=== PATIENT | female | born 1995 | race Caucasian/White ===

== ENCOUNTER 2021-08-01 11:33 | Inpatient (IN) | payer OTHER, SELFPAY ==
[2021-08-01 11:34] VITALS: BP 146/96; PULSE 82; RESP 16; TEMP 35.9; O2SAT 97; BMI 62.6
--- NOTE | 2021-08-01 11:59 | EDS_ITS ---
HPI History of Present Illness Chief Complaint: Abd Pain Informant: patient Onset/Context/Timing Onset: Days (3 days) Context: Gradual Onset Current Severity: Moderate Maximum Severity: Moderate Narrative Narrative: Patient presents secondary to epigastric abdominal pain. She reports constant pain. When she eats she states the pain will get worse and she will vomit. No diarrhea. She is had no fever but has had mild chills. She does report cough but no shortness of breath. She has been tested 3 times this week for Covid and negative. She was also vaccinated. She denies any prior abdominal surgeries. [facility] Medical History Depression H. pylori infection Seasonal allergies Home Medications albuterol sulfate [Proventil Hfa] 1 - 2 g IH PRN PRN 01/01/16 [History Last Taken Unknown] escitalopram oxalate 20 mg PO DAILY 08/01/21 [History Last Taken Unknown] omeprazole 40 mg PO DAILY 08/01/21 [History Last Taken Unknown] Allergy/AdvReac Type Severity Reaction Status Date / Time No Known Allergies Allergy Verified 08/01/21 11:34 Social History Smoking Status: Never smoker ROS ROS ED Constitutional Constitutional ED: Reports chills; Denies fever(s) Eyes Eyes: Denies change in vision ENT ENT ED: Denies sore throat Cardiovascular Cardiovascular: Denies chest pain Respiratory/Chest Respiratory/Chest: Reports cough and sputum; Denies dyspnea Gastrointestinal Gastrointestinal: Reports abdominal pain, nausea and vomiting; Denies diarrhea Genitourinary Genitourinary ED: Denies dysuria Musculoskeletal Musculoskeletal: Denies back pain Integumentary Denies rash Neurologic Neurologic: Denies headache(s) or weakness Allergic/Immunologic Allergic/Immunologic ED: Denies urticaria EXAM Physical Exam Const Vital Signs: 08/01/21 11:34 08/01/21 14:56 Temperature 96.7 F L Temperature Source Temporal Pulse Rate 82 71 Respiratory Rate 16 16 Blood Pressure 146/96 H 134/79 H Blood Pressure Mean 112 8 Pulse Ox 97 100 Oxygen Delivery Method Room Air Room Air Positive well nourished and well developed General Appearance ED: well developed HEENT Reports normocephalic and head/scalp atraumatic Eyes PERRL and EOMs intact bilaterally Neck supple Chest Wall inspection of chest normal and palpation of chest normal Resp normal respiratory effort and clear to auscultation bilaterally Cardio regular rate and regular rhythm GI Auscultation: hypoactive bowel sounds Palpation: soft and tender epigastric Extremity normal to inspection Neuro oriented x3 and no sensory deficits noted Sensorium / Orientation: alert Motor Exam: strength 5/5 throughout Psych mental status grossly normal Skin no rashes or lesions noted MDM MDM MDM Narrative Medical decision making narrative: Patient is given Zofran and Protonix along with IV fluids. Lab work obtained. Lab Data Attestation: I reviewed the patient's lab results. Labs: Laboratory Results - last 24 hr 08/01/21 08/01/21 12:25 12:25 WBC 6.3 RBC 4.72 Hgb 13.2 Hct 40.4 MCV 85.6 MCH 28.0 MCHC 32.7 RDW Std Deviation 38.1 RDW Coeff of Arvin 12.3 Plt Count 199 MPV 10.9 Immature Gran % (Auto) 0.300 Neut % (Auto) 70.9 H Lymph % (Auto) 18.9 L [place] % (Auto) 7.6 Eos % (Auto) 1.7 Baso % (Auto) 0.6 Absolute Neuts (auto) 4.5 Absolute Lymphs (auto) 1.19 Nucleated RBC % 0 Sodium 140 Potassium 3.7 Chloride 107 Carbon Dioxide 26.0 Anion Gap 7 BUN 9 Creatinine 0.77 Estim Creat Clear Calc 108.61 Est GFR (MDRD) Af Amer 118 Est GFR (MDRD) Non-Af 97 BUN/Creatinine Ratio 11.7 Glucose 95 Calcium 8.2 L Total Bilirubin 4.80 H Direct Bilirubin 3.19 H AST 156 H ALT 486 H Alkaline Phosphatase 206 H Total Protein 7.2 Albumin 3.1 L Globulin 4.1 Lipase 4070 H Radiography Chest X-Ray - ED: 1 View, Read by ED Physician, Normal, Heart, Lungs and Mediastinum Diagnostic Testing: Radiology Impression Chest X-Ray 08/01/21 12:22 IMPRESSION: Normal x-ray examination of the chest. Electronically Signed: Juan Ellington MD at 12:46 EDT , Service support , Abdomen Ultrasound 08/01/21 13:23 IMPRESSION: Fatty infiltration of the liver. Multiple gallstones. Mild degree of bright hydronephrosis. Electronically Signed: Juan Ellington MD at 15:09 EDT , Service support , Treatment and Re-Evaluation Comments:: Patient's LFTs and lipase are elevated. Right upper quadrant ultrasound obtained that reveals multiple gallstones. No significant gallbladder wall thickness or stone noted in the duct. Patient be admitted to medicine with consult to GI. Test results discussed with patient and family at bedside. Discharge Plan Triage Chief Complaint: Abd Pain ED Provider: Beth Seo Dx/Rx/DC Orders Clinical Impression: Acute pancreatitis Prescriptions: No Action albuterol sulfate [Proventil HFA] 6.7 GM HFA aerosol inhaler 1 - 2 g IH PRN PRN (Reason: Sob &/Or Wheezing) RF: 0 omeprazole 40 mg capsule,delayed release(DR/EC) 40 mg PO DAILY RF: 0 escitalopram oxalate 20 mg tablet 20 mg PO DAILY RF: 0 Primary Care Provider: Carrington Bravo Referrals: Carrington Bravo MD [Primary Care Provider] - Disposition Disposition: Acute Care [facility]
--- NOTE | 2021-08-01 12:22 | RAD_ITS ---
STUDY: X-RAY CHEST REASON FOR EXAM: Female, 26 years old. Cough TECHNIQUE: Single AP portable view of the chest. COMPARISON: Comparison is made with prior study dated 01/01/2016. FINDINGS: The lungs are clear and expanded. There is no demonstrated pleural abnormality. Normal size heart. Normal mediastinum and yogesh. Normal visualized pulmonary arteries. Normal visualized aortic arch and descending thoracic aorta. Normal visualized thoracic spine. Normal visualized ribs, clavicles, and shoulders. There is no demonstrated abnormality of the visualized soft tissue structures of the upper abdomen. RAD/Chest 1 View (Portable) IMPRESSION: Normal x-ray examination of the chest. Electronically Signed: Juan Ellington MD at 12:46 EDT , Service support ,
[2021-08-01] MEDS: 0.9% Normal Saline 1,000 ML 150 ML IV ×2 (12:30→19:17)
[2021-08-01] MEDS: Ondansetron 4 MG/2 ML Vial IV (12:34)
[2021-08-01 12:37] LABS: Absolute Lymphocyte Count 1.19 X10^3/uL (0.83-4.51); Absolute Neutrophil Count 4.5 X10^3/uL (2.0-7.7); Basophil# 0.04 X10^3/uL; Basophil% 0.6 % (0-1); Eosinophil# 0.11 X10^3/uL; Eosinophils% 1.7 % (0-5); Hematocrit 40.4 % (37-47); Hemoglobin 13.2 g/dL (12.0-15.0); Lymphocyte # 1.19 X10^3/ul (0.83-4.51); Lymphocyte % 18.9 % (19-41); Mean Corp Hgb Conc 32.7 g/dL (32-36); Mean Corpuscular Volume 85.6 fL (81-99); Mean Platelet Vol. 10.9 fl (6.2-12.0); Monocyte# 0.48 X10^3/uL; Monocyte% 7.6 % (0-10); NRBC Flagged by Analyzer 0 % (0-5); Neutrophil # 4.45 X10^3/uL (2.7-7.7); Neutrophil % 70.9 % (47-70); Platelet Count 199 K/mm3 (150-450); RBC Distribution Width CV 12.3 % (11.6-14.6); RBC Distribution Width SD 38.1 fl (35.1-43.9); Red Blood Count 4.72 M/mm3 (4.2-5.4); White Blood Count 6.3 K/mm3 (4.4-11.0)
[2021-08-01 13:07] LABS: AST(SGOT) 156 U/L (15-37); Alanine Aminotransfer ALT/SGPT 486 U/L (13-56); Albumin, Serum 3.1 g/dL (3.2-5.0); Alkaline Phosphatase 206 U/L (45-117); Anion Gap 7 (5-15); BUN 9 mg/dL (7-18); BUN/Creat Ratio 11.7 RATIO (10-20); Bilirubin, Direct 3.19 mg/dL (0.00-0.30); Calcium,Total 8.2 mg/dL (8.5-10.1); Chloride 107 mmol/L (98-107); Creatinine, Serum 0.77 mg/dL (0.55-1.02); EST Glomerular Filtration Rate 97 mL/min (>60); Est Glom Filt Rate - Afr Amer 118 mL/min (>60); Estimated Creatinine Clearance 108.61 ml/min; Globulin 4.1 g/dL (2.2-4.2); Glucose 95 mg/dL (74-106); Lipase 4070 U/L (73-393); Potassium 3.7 mmol/L (3.5-5.1); Protein, Total 7.2 g/dL (6.4-8.2); Sodium Level 140 mmol/L (136-145)
--- NOTE | 2021-08-01 13:23 | US_ITS ---
STUDY: ABDOMINAL ULTRASOUND - RIGHT UPPER QUADRANT REASON FOR VISIT: Female, 26 years old epigastric pain. TECHNIQUE: Ultrasound evaluation of the right upper quadrant was performed with real-time and static scott-scale imaging. TECHNICAL QUALITY: Limited. Examination limited due to obesity. COMPARISON: None. FINDINGS: Liver: The liver measures 17 cm. There is increased echogenicity consistent with fatty infiltration. The bile ducts are within normal limits. There is hepatic color flow. The direction of portal flow is hepatopetal. There is no demonstrated mass lesion. Gallbladder: Normal distended gallbladder. The gallbladder wall measures 2.4 mm. There is a negative sonographic Rush''s sign. There is no pericholecystic fluid. There are multiple echogenic structures within the gallbladder, consistent with multiple gallstones. Common Bile Duct (C.B.D.): The common bile duct measures 4.5 mm. Pancreas: Normal size of the head, body and tail of the pancreas. There is normal echogenicity of the pancreas. There is no demonstrated pancreatic mass or cyst. Right Kidney: Normal size of the right kidney. The right kidney measures 12.4 cm x 6.2 cm x 4.3 cm. Normal renal cortex. The right cortex measures 1.5 cm. There is no demonstrated renal mass or cyst. Mild degree of right hydronephrosis. US/Abdomen Limited IMPRESSION: Fatty infiltration of the liver. Multiple gallstones. Mild degree of bright hydronephrosis. Electronically Signed: Juan Ellington MD at 15:09 EDT , Service support ,
[2021-08-01 14:56] VITALS: BP 134/79; PULSE 71; RESP 16; O2SAT 100
[2021-08-01 16:30] VITALS: BP 135/74; PULSE 82; RESP 16; TEMP 37.2; O2SAT 97
--- NOTE | 2021-08-01 17:45 | PCM.HP.STD ---
HPI - General General Date of Admission: 08/01/21 HPI Narrative AINSLEY MORRIS, is a 26 F who presented to the emergency department [facility] on 08/01/2021 complaining abdominal pain. She reports that she has had epigastric abdominal pain that has been constant but worsening over the last 3 days. She states it started on Wednesday night was fairly constant yesterday but got more severe this morning and that is why she decided to present to the emergency department. She reported that when she eats she states the pain gets worse and she will have an emesis. She has had intermittent nausea but no diarrhea or constipation. She said no fever but had intermittent mild chills. She indicates she is been tested 3 times for Covid this week and has been negative each time. She has no other symptoms other than her abdominal symptoms. She denies any previous abdominal surgeries and has had to her Covid vaccine. Her vital signs the emergency department were unremarkable. Her CBC was unremarkable. Her CMP was unremarkable other than an elevated total bilirubin at 4.8 with a direct bilirubin of 3.19, and AST of 156, and ALT of 486, and an alkaline phosphatase of 206. A lipase was obtained and was elevated at 4070. Given the concern for gallstone pancreatitis and ultrasound of her abdomen was performed and showed fatty infiltration of the liver, multiple gallstones and a mild degree of right hydronephrosis but no ductal dilation within the biliary system. Upon my exam she was having improved pain since this morning and I suspect she had a stone that passed acutely this morning. She will be admitted to medical surgical floor for continued treatment for mild pancreatitis and follow-up on her liver enzymes. [facility] Medical History Depression H. pylori infection Seasonal allergies Home Medications albuterol sulfate [Proventil Hfa] 1 - 2 g IH PRN PRN 01/01/16 [History Last Taken Unknown] escitalopram oxalate 20 mg PO DAILY 08/01/21 [History Last Taken Unknown] omeprazole 40 mg PO DAILY 08/01/21 [History Last Taken Unknown] Allergy/AdvReac Type Severity Reaction Status Date / Time No Known Allergies Allergy Verified 08/01/21 11:34 Family History (Updated 08/01/21 @ 17:[address] Mary Cesar DO) Other Hypertension Social History (Updated 08/01/21 @ 17:[address] Mary Cesar, DO) Smoking Status: Never smoker alcohol intake: current alcohol intake frequency: holidays/special occasions only substance use type: does not use ROS Review of Systems ROS Unobtainable: Denies due to encephalopathy, due to endotracheal tube, due to mental condition, due to mental status or other Constitutional Constitutional: Reports anorexia and chills; Denies change in weight, fatigue, fever(s), malaise, night sweats, weakness or other Eyes Eyes: Denies blurry vision, change in eye color, change in vision, discharge from eye(s), double vision, erythema, eye pain, loss of vision or other ENT HEENT: Denies abnormal hearing, dysphagia, ear pain, epistaxis, headache(s), hearing loss, nasal congestion, nasal discharge, post nasal drip, sinus pressure, sore throat or other Cardiovascular Cardiovascular: Denies chest pain, claudication, dyspnea on exertion, edema, lightheadedness, orthopnea, palpitations, paroxysmal nocturnal dyspnea, rapid heart rate, syncope or other Respiratory/Chest Respiratory/Chest: Denies cough, dyspnea, excessive phlegm production, hemoptysis, productive cough, shortness of breath at rest, shortness of breath with exertion, wheezing or other Gastrointestinal Gastrointestinal: Reports abdominal pain, nausea and vomiting; Denies coffee ground emesis, constipation, diarrhea, dyspepsia, hematemesis, hematochezia, loose stools, melena or other Genitourinary Genitourinary: Denies burning urination, difficulty urinating, dysuria, hematuria, nocturia, urinary frequency, urinary hesitancy, urinary incontinence, urinary urgency or other Musculoskeletal Musculoskeletal: Denies arthralgias, back pain, joint pain, joint stiffness, joint swelling, myalgias, neck pain or other Neurologic Neurologic: Denies abnormal gait, abnormal speech, confusion, disequilibrium, dizziness, focal weakness, headache(s), numbness, paresthesias, seizure-like activity, seizures, syncope, tingling, tremor(s) or other Psychiatric Psychiatric: Denies anxiety, depression, homicidal ideation, suicidal ideation or other Endocrine Endocrinology: Denies change in body appearance, cold intolerance, excessive sweating, heat intolerance, polydipsia, polyuria or other Hematologic/Lymphatic Hematologic/Lymphatic: Denies anemia, easy bleeding, easy bruising, lymphadenopathy or other Allergic/Immunologic Allergic/Immunologic: Denies rhinitis, hives, eczemia, asthma or other Vital Signs Vital Signs Vital Signs: 08/01/21 11:34 08/01/21 14:56 08/01/21 16:30 Temperature 96.7 F L 98.9 F Temperature Source Temporal Oral Pulse Rate 82 71 82 Respiratory Rate 16 16 16 Blood Pressure 146/96 H 134/79 H 135/74 H Blood Pressure Mean 112 8 94 Pulse Ox 97 100 97 Oxygen Delivery Method Room Air Room Air Room Air Weight Weight: 181.437 kg Body Mass Index (BMI) 62.6 Physical Exam Const alert, oriented x3 and no apparent distress Constitutional Narrative: Morbidly obese white female sitting up in bed, appears comfortable, mother at bedside, nontoxic General Appearance: cooperative HEENT normocephalic, head/scalp atraumatic, hearing grossly normal bilaterally, moist oral mucous membranes, oropharynx normal and dentition normal Mouth: oral and palatal mucosa normal Eyes PERRL, EOMs intact bilaterally and conjunctivae normal Neck no lymphadenopathy, supple, no JVD and no carotid bruits Resp normal respiratory effort, no retractions, no use of accessory muscles and clear to auscultation bilaterally Auscultation: Negative for crackles, rales, rhonchi or wheezes Cardio regular rate, regular rhythm, S1 normal heart sound, S2 normal heart sound, no murmurs, no rub, no gallops, no clicks and no JVD GI normal to inspection, nondistended, normoactive bowel sounds and soft to palpation Palpation: tender epigastric and LUQ Extremity normal to inspection and no clubbing, cyanosis or edema Peripheral Pulses: Yes pulses 2+ throughout Skin no rashes or lesions noted, no wounds, skin turgor normal, no jaundice, no petechiae and no mottling Neuro oriented x3, CN's II-XII intact bilaterally, moves all extremities and no focal motor deficits Sensorium / Orientation: awake, alert, oriented to person, oriented to place and oriented to time Speech: speech normal Motor Exam: strength 5/5 throughout Psych affect normal Results Lab / Micro Data Attestation: I reviewed the patient's lab results. Result Diagrams: 08/01/21 12:25 08/01/21 12:25 Labs: Laboratory Results - last 24 hr 08/01/21 12:25: WBC 6.3, RBC 4.72, Hgb 13.2, Hct 40.4, MCV 85.6, MCH 28.0, MCHC 32.7, RDW Std Deviation 38.1, RDW Coeff of Arvin 12.3, Plt Count 199, MPV 10.9, Immature Gran % (Auto) 0.300, Neut % (Auto) 70.9 H, Lymph % (Auto) 18.9 L, [place] % (Auto) 7.6, Eos % (Auto) 1.7, Baso % (Auto) 0.6, Absolute Neuts (auto) 4.5, Absolute Lymphs (auto) 1.19, Nucleated RBC % 0 08/01/21 12:25: Sodium 140, Potassium 3.7, Chloride 107, Carbon Dioxide 26.0, Anion Gap 7, BUN 9, Creatinine 0.77, Estim Creat Clear Calc 108.61, Est GFR (MDRD) Af Amer 118, Est GFR (MDRD) Non-Af 97, BUN/Creatinine Ratio 11.7, Glucose 95, Calcium 8.2 L, Total Bilirubin 4.80 H, Direct Bilirubin 3.19 H, AST 156 H, ALT 486 H, Alkaline Phosphatase 206 H, Total Protein 7.2, Albumin 3.1 L, Globulin 4.1, Lipase 4070 H Radiology Impression Chest X-Ray 08/01/21 12:22 IMPRESSION: Normal x-ray examination of the chest. Electronically Signed: Juan Ellington MD at 12:46 EDT , Service support , Abdomen Ultrasound 08/01/21 13:23 IMPRESSION: Fatty infiltration of the liver. Multiple gallstones. Mild degree of bright hydronephrosis. Electronically Signed: Juan Ellington MD at 15:09 EDT , Service support , Assessment & Plan Assessment/Plan (1) Acute pancreatitis: (2) Cholelithiasis: (3) Hepatic steatosis: (4) Hydronephrosis, right: PLAN: Acute gallstone pancreatitis -Continue IV fluids at 150 cc/h -Continue IV morphine for pain management -Trend enzymes -I do anticipate a decline in her LFTs tomorrow given her improved pain -Patient is a nondrinker -Check lipids -GI consultation -will need outpatient surgical follow-up for cholecystectomy after discharge Cholelithiasis -See above Mild right hydronephrosis -Etiology uncertain -Would recommend outpatient follow-up with urology -Check UA Hepatic steatosis -Suspect fatty liver related to metabolic syndrome -Recommend weight loss -Check lipids Morbid obesity -Recommend weight loss -Consider outpatient follow-up for bariatric intervention -Complicates treatment, outcomes, and prognosis DVT prophylaxis -Lovenox CODE STATUS -Full code Charges/Coding Visit Charges Inpatient E&M: 00399 Init Hosp L3
[2021-08-01 18:10] VITALS: BP 132/79; PULSE 80; RESP 18; TEMP 36.2; O2SAT 98
[2021-08-01 18:37] VITALS: BMI 63.7
--- NOTE | 2021-08-01 19:41 | CON.PCM.GI_ITS ---
HPI Consult Data Date of Consult: 08/01/21 HPI Narrative HPI Narrative: AINSLEY MORRIS, is a 26 F who presents with acute on set of abdominal pain. She has a past medical history of gastroesophageal reflux disease, only on medicine as needed, H. pylori infection, sleep apnea and depression. She presented to the ED after having 10 out of 10 pain that started in mid epigastric area radiating to the right upper quadrant. When she got to the ED she was afebrile and hypertensive. Her laboratory analysis had shown increase liver function tests consistent with obstructive jaundice. Her labs also showed an increased lipase of 4000. Upon talking to her at this time she does not have any abdominal pain. Her urine is still very dark. She had an ultrasound of the right upper quadrant that showed cholelithiasis without choledocholithiasis. Her common bile duct diameter was 4.5. The pancreas on ultrasound appeared normal without swelling, stone or ductal abnormality. She denied any recent illnesses. She has not started any new medicines. She is not had any trauma. She does not drink any alcohol. She has no family history of pancreatitis. She does not have any problems with hypertriglyceridemia. [facility] Medical History Asthma CPAP (continuous positive airway pressure) dependence Depression H. pylori infection Seasonal allergies Sleep apnea Home Medications albuterol sulfate [Proventil Hfa] 1 - 2 g IH PRN PRN 01/01/16 [History Last Taken Unknown] escitalopram oxalate 20 mg PO DAILY 08/01/21 [History Last Taken 07/31/21] omeprazole 40 mg PO DAILY 08/01/21 [History Last Taken 07/31/21] Allergy/AdvReac Type Severity Reaction Status Date / Time No Known Allergies Allergy Verified 08/01/21 11:34 Family History (Updated 08/01/21 @ 17:[address] Mary Cesar DO) Other Hypertension Social History (Updated 08/01/21 @ 17:[address] Mary Cesar DO) Smoking Status: Never smoker alcohol intake: current alcohol intake frequency: holidays/special occasions only substance use type: does not use ROS Review of Systems ROS Unobtainable: other Constitutional Constitutional: Denies fatigue, fever(s), poor appetite, weight gain or weight loss ENT HEENT: Denies mouth lesions Cardiovascular Cardiovascular: Denies abdominal bloating, abdominal edema or abdominal pain Respiratory/Chest Respiratory/Chest: Denies change in mental status, change in phlegm color, chest congestion or chest tightness Gastrointestinal Gastrointestinal: Denies belching, bloating, change in bowel habits, change in stool character, chewing difficulty, coffee ground emesis, constipation, cramping, diarrhea, dyspepsia, dysphagia, early satiety, excessive flatus, fecal incontinence, heartburn, hematemesis, hematochezia, hemorrhoids, loose stools, melena, nausea, odynophagia, rectal bleeding, tenesmus, vomiting or weight changes Genitourinary Genitourinary: Denies abdominal discomfort, burning urination or itching Musculoskeletal Musculoskeletal: Reports as per HPI; Denies muscle weakness or myalgias Integumentary Integumentary: Denies jaundice Neurologic Neurologic: Denies lack of coordination or weakness Psychiatric Psychiatric: Denies confusion, depression, memory loss, mood swings, paranoia or suicidal ideation Endocrine Endocrinology: Denies systems reviewed and no addt'l complaints, except as documented Hematologic/Lymphatic Hematologic/Lymphatic: Denies anemia, easy bleeding, easy bruising or lymphadenopathy Allergic/Immunologic Allergic/Immunologic: Denies systems reviewed and no addt'l complaints, except as documented Physical Exam Const alert General Appearance: cooperative Orientation / Consciousness: oriented to person HEENT hearing grossly normal bilaterally Head and Scalp: normal to inspection Face and Sinus: face symmetric Nose: external nose normal Mouth: oral and palatal mucosa normal Eyes conjunctivae normal General Eye: normal appearance of both eyes Neck full ROM General: normal visual inspection Lymph Lymphatic: no lymphadenopathy noted Chest inspection of chest normal and palpation of chest normal Chest: symmetrical chest wall rise Resp normal respiratory effort Effort and Inspection: able to speak in complete sentences Cardio regular rate GI non-distended Percussion: normal to percussion Rectal Exam: deferred Neuro Speech: speech normal Gait (Neuro): normal gait Lab / Micro Data Result Diagrams: 08/01/21 12:25 08/01/21 12:25 Labs: Laboratory Results - last 24 hr 08/01/21 12:25: WBC 6.3, RBC 4.72, Hgb 13.2, Hct 40.4, MCV 85.6, MCH 28.0, MCHC 32.7, RDW Std Deviation 38.1, RDW Coeff of Arvin 12.3, Plt Count 199, MPV 10.9, Immature Gran % (Auto) 0.300, Neut % (Auto) 70.9 H, Lymph % (Auto) 18.9 L, [place] % (Auto) 7.6, Eos % (Auto) 1.7, Baso % (Auto) 0.6, Absolute Neuts (auto) 4.5, Absolute Lymphs (auto) 1.19, Nucleated RBC % 0 08/01/21 12:25: Sodium 140, Potassium 3.7, Chloride 107, Carbon Dioxide 26.0, Anion Gap 7, BUN 9, Creatinine 0.77, Estim Creat Clear Calc 108.61, Est GFR (MDR D) Af Amer 118, Est GFR (MDRD) Non-Af 97, BUN/Creatinine Ratio 11.7, Glucose 95, Calcium 8.2 L, Total Bilirubin 4.80 H, Direct Bilirubin 3.19 H, AST 156 H, ALT 486 H, Alkaline Phosphatase 206 H, Total Protein 7.2, Albumin 3.1 L, Globulin 4 .1, Lipase 4070 H Radiology Impression Chest X-Ray 08/01/21 12:22 IMPRESSION: Normal x-ray examination of the chest. Electronically Signed: Juan Ellington MD at 12:46 EDT , Service support , Abdomen Ultrasound 08/01/21 13:23 IMPRESSION: Fatty infiltration of the liver. Multiple gallstones. Mild degree of bright hydronephrosis. Electronically Signed: Juan Ellington MD at 15:09 EDT , Service support , Assessment & Plan Assessment/Plan (1) Acute pancreatitis: PLAN: This is likely gallstone pancreatitis. In the setting of cholelithiasis in a young female, this is the most likely diagnosis. Recommend 200 cc of normal saline per hour over the next 12 hours and then it can be decreased down to 150 cc an hour. Recheck lipase. Check ESR and CRP. Check serum triglycerides. (2) Cholelithiasis: PLAN: She should have an outpatient evaluation for cholecystectomy. Recommend low-fat diet when she resumes eating. (3) Hepatic steatosis: PLAN: She should have an outpatient fiber sure test and elastography to determine the stage of her steatosis. If she has insulin insufficiency she would benefit from pioglitazone 15 mg a day. Thank you very much for allowing me to participate in care of this patient.
[2021-08-01] MEDS: Enoxaparin 40 MG/0.4 ML Syringe SC (22:18)
[2021-08-01 22:34] VITALS: BP 125/82; PULSE 95; RESP 18; TEMP 36.6; O2SAT 96
[2021-08-02] MEDS: 0.9% Normal Saline 1,000 ML 150 ML IV ×2 (02:15→09:24)
[2021-08-02 06:00] LABS: Absolute Lymphocyte Count 1.84 X10^3/uL (0.83-4.51); Absolute Neutrophil Count 5.5 X10^3/uL (2.0-7.7); Basophil# 0.03 X10^3/uL; Basophil% 0.4 % (0-1); Eosinophils% 1.3 % (0-5); Hematocrit 38.6 % (37-47); Hemoglobin 12.2 g/dL (12.0-15.0); Lymphocyte # 1.84 X10^3/ul (0.83-4.51); Lymphocyte % 23.2 % (19-41); Mean Corp Hgb Conc 31.6 g/dL (32-36); Mean Corpuscular Volume 88.7 fL (81-99); Monocyte# 0.48 X10^3/uL; NRBC Flagged by Analyzer 0 % (0-5); Neutrophil # 5.47 X10^3/uL (2.7-7.7); Neutrophil % 68.8 % (47-70); Platelet Count 189 K/mm3 (150-450); RBC Distribution Width CV 12.2 % (11.6-14.6); RBC Distribution Width SD 39.5 fl (35.1-43.9); Red Blood Count 4.35 M/mm3 (4.2-5.4); White Blood Count 7.9 K/mm3 (4.4-11.0)
[2021-08-02 06:39] VITALS: BP 127/79; PULSE 78; RESP 16; TEMP 36.6; O2SAT 97
[2021-08-02 06:42] LABS: ALB/GLOB Ratio 0.7 RATIO (0.9-2.4); AST(SGOT) 66 U/L (15-37); Alanine Aminotransfer ALT/SGPT 335 U/L (13-56); Albumin, Serum 2.8 g/dL (3.2-5.0); Alkaline Phosphatase 184 U/L (45-117); Anion Gap 7 (5-15); BUN 12 mg/dL (7-18); BUN/Creat Ratio 16.9 RATIO (10-20); Calcium,Total 7.9 mg/dL (8.5-10.1); Chloride 109 mmol/L (98-107); Cholesterol 149 mg/dL (200); Creatinine, Serum 0.71 mg/dL (0.55-1.02); EST Glomerular Filtration Rate 106 mL/min (>60); Est Glom Filt Rate - Afr Amer 129 mL/min (>60); Estimated Creatinine Clearance 117.79 ml/min; Globulin 3.8 g/dL (2.2-4.2); Glucose 68 mg/dL (74-106); High Density Lipoprotein 39 mg/dL; Magnesium 2.1 mg/dL (1.6-2.6); Potassium 3.9 mmol/L (3.5-5.1); Protein, Total 6.6 g/dL (6.4-8.2); Sodium Level 139 mmol/L (136-145); Thyroid Stim Hormone (TSH) 1.48 uIU/mL (0.358-3.74); Triglycerides 105 mg/dL; Very Low Density Lipoprotein 21 mg/dL (5-40)
[2021-08-02 08:56] VITALS: O2SAT 97
[2021-08-02] MEDS: Dextrose 50%-Water 25 GM/50 ML DISP.SYRIN IV (10:25)
[2021-08-02] MEDS: Pantoprazole Sodium 40 MG Tablet PO (10:31)
[2021-08-02] MEDS: Enoxaparin 40 MG/0.4 ML Syringe SC (10:32)
[2021-08-02] MEDS: Escitalopram Oxalate 20 MG Tablet PO (10:32)
[2021-08-02] MEDS: Dextrose 5%/0.9% NaCl 1,000 ML 100 ML IV (10:48)
--- NOTE | 2021-08-02 11:06 | PN.GI_ITS ---
Subjective Subjective Patient is feeling a lot better. Her abdominal pain is drastically improved. She is urinating without any problems. She does not have any shortness of breath. Her mother is at the bedside at this time. Objective Data Objective Data Vital Signs: Vital Signs Temp Pulse Resp BP Pulse Ox 97.9 F 78 16 127/79 H 97 08/02/21 06:39 08/02/21 06:39 08/02/21 06:39 08/02/21 06:39 08/02/21 08:56 Oxygen Delivery Method Room Air Weight: 407 lb Body Mass Index (BMI) 63.7 Intake & Output: Intake and Output for Last 24 Hours 07/31/21 08/01/21 08/02/21 23:59 23:59 23:59 Intake Total 1110 / 1110 1999 Balance 111 / 1110 1999 Lab / Micro Data Result Diagrams: 08/02/21 05:30 08/02/21 05:30 Labs: Laboratory Results - last 24 hr 08/01/21 12:25: WBC 6.3, RBC 4.72, Hgb 13.2, Hct 40.4, MCV 85.6, MCH 28.0, MCHC 32.7, RDW Std Deviation 38.1, RDW Coeff of Arvin 12.3, Plt Count 199, MPV 10.9, Immature Gran % (Auto) 0.300, Neut % (Auto) 70.9 H, Lymph % (Auto) 18.9 L, Saline % (Auto) 7.6, Eos % (Auto) 1.7, Baso % (Auto) 0.6, Absolute Neuts (auto) 4.5, Absolute Lymphs (auto) 1.19, Nucleated RBC % 0 08/01/21 12:25: Sodium 140, Potassium 3.7, Chloride 107, Carbon Dioxide 26.0, Anion Gap 7, BUN 9, Creatinine 0.77, Estim Creat Clear Calc 108.61, Est GFR (M DRD) Af Amer 118, Est GFR (MDRD) Non-Af 97, BUN/Creatinine Ratio 11.7, Glucose 95, Calcium 8.2 L, Total Bilirubin 4.80 H, Direct Bilirubin 3.19 H, AST 156 H, ALT 486 H, Alkaline Phosphatase 206 H, Total Protein 7.2, Albumin 3.1 L, Globulin 4.1, Lipase 4070 H 08/02/21 05:30: Sodium 139, Potassium 3.9, Chloride 109 H, Carbon Dioxide 23.0, Anion Gap 7, BUN 12, Creatinine 0.71, Estim Creat Clear Calc 117.79, Est GFR (MDRD) Af Amer 129, Est GFR (MDRD) Non-Af 106, BUN/Creatinine Ratio 16.9, Glucose 68 L, Calcium 7.9 L, Magnesium 2.1, Total Bilirubin 1.20 H, AST 66 H, ALT 335 H, Alkaline Phosphatase 184 H, Total Protein 6.6, Albumin 2.8 L, Globulin 3.8, Albumin/Globulin Ratio 0.7 L, Triglycerides 105, Cholesterol 149, LDL Cholesterol 89, VLDL Cholesterol 21, HDL Cholesterol 39 L, TSH 1.48 08/02/21 05:30: WBC 7.9, RBC 4.35, Hgb 12.2, Hct 38.6, MCV 88.7, MCH 28.0, MCHC 31.6 L, RDW Std Deviation 39.5, RDW Coeff of Arvin 12.2, Plt Count 189, MPV 11.0, Immature Gran % (Auto) 0.300, Neut % (Auto) 68.8, Lymph % (Auto) 23.2, Saline % (Auto) 6.0, Eos % (Auto) 1.3, Baso % (Auto) 0.4, Absolute Neuts (auto) 5.5, Absolute Lymphs (auto) 1.84, Nucleated RBC % 0 08/02/21 05:30: Phosphorus 3.0 Radiography Diagnostic Testing: Radiology Impression Chest X-Ray 08/01/21 12:22 IMPRESSION: Normal x-ray examination of the chest. Electronically Signed: Juan Ellington MD at 12:46 EDT , Service support , Abdomen Ultrasound 08/01/21 13:23 IMPRESSION: Fatty infiltration of the liver. Multiple gallstones. Mild degree of bright hydronephrosis. Electronically Signed: Juan Ellington MD at 15:09 EDT , Service support , Physical Exam Const alert General Appearance: cooperative Orientation / Consciousness: oriented to person HEENT hearing grossly normal bilaterally Head and Scalp: normal to inspection Face and Sinus: face symmetric Nose: external nose normal Mouth: oral and palatal mucosa normal Eyes conjunctivae normal General Eye: normal appearance of both eyes Neck full ROM General: normal visual inspection Lymph Lymphatic: no lymphadenopathy noted Chest inspection of chest normal and palpation of chest normal Chest: symmetrical chest wall rise Resp normal respiratory effort Effort and Inspection: able to speak in complete sentences Cardio regular rate GI non-distended Percussion: normal to percussion Rectal Exam: deferred Neuro Speech: speech normal Gait (Neuro): normal gait Assessment & Plan Assessment/Plan (1) Acute pancreatitis: PLAN: Her abdominal pain is better as well as her biochemical profile. Recommend to start with clear liquids and advance as tolerated. Continue IV fluids at current rate. (2) Cholelithiasis: PLAN: Patient will be started on ursodiol twice a day until she has follow-up outpatient evaluation for cholecystectomy. (3) Hepatic steatosis: PLAN: She should probably be started on pioglitazone or Metformin as an outpatient. Charges/Coding Visit Charges Inpatient E&M: 17280 Subs Hosp L3
[2021-08-02 11:45] VITALS: BP 127/80; PULSE 84; RESP 18; TEMP 36.6; O2SAT 98
--- NOTE | 2021-08-02 11:45 | CASEMGMT ---
RN JOSÉ Face to Face with patient for initial transition planning/care coordination assessment. RN CM introduced self and role at [facility]. Patient lying in bed, alert and oriented, mother at bedside. Patient willing to participate in assessment and is able to answer all questions appropriately. Care providers, pharmacy, and demographics verified. Patient wishes to discharge home, denies need for home health at this time. Patient states she has no further needs or concerns at this time. CM to follow for discharge planning needs that may arise. PCP: [facility] Specialists: none Preferred Pharmacy: [facility] Insurance: MMO Prescription Benefit: yes Living Will/HPOA: none LNOK: mother Living Arrangements: Patient lives with mother in a single story home. Patient independent at home and able to ambulate stairs Transportation: self/mother DME/HHC: Patient states she has cpap at home. Denies previous HHC. Disposition Plan: Patient to discharge home with family support and follow-up plans in place. Caridad SERNA, RN, CM
--- NOTE | 2021-08-02 11:51 | PCM.DC ---
Discharge Instructions Diet Discharge Diet: Carb Control Diet Activity Discharge Activity: Return to Normal Activity Weight Bearing Status: Weight bearing as tolerated Follow Up Care Test Results: Test results from this visit will be discussed in further detail at your follow-up appointment, if applicable. Discharge Plan Admission Admit Date/Time: 08/01/21 15:41 Primary Reason for Your Visit: Acute gallstone pancreatitis Attending Provider: Dara Mcclain Primary Care Provider: Carrington Bravo Consulting Providers: Kermit Mcfarland Instructions Patient Instructions: Understanding Pancreatitis, What Are Gallstones Additional Instructions / Restrictions: Continue on a liquid diet and advance your diet as tolerated. Continue on a low-fat diet Discharge Orders/Prescriptions Prescriptions: New ursodiol 250 mg Tablet 250 mg PO TIDCM 30 Days Qty: 90 RF: 0 Continued albuterol sulfate [Proventil HFA] 6.7 GM HFA aerosol inhaler 1 - 2 g IH PRN PRN (Reason: Sob &/Or Wheezing) RF: 0 omeprazole 40 mg capsule,delayed release(DR/EC) 40 mg PO DAILY RF: 0 escitalopram oxalate 20 mg tablet 20 mg PO DAILY RF: 0 Referrals / Follow Up: Carrington Bravo MD [Primary Care Provider] - Within 2 Weeks Kermit Mcfarland DO [STAFF PHYSICIAN] - Within 2 Weeks Disposition Disposition (needs filled in before D/C Order can be placed): Home, Self Care
--- NOTE | 2021-08-02 12:06 | PCM.DC.SUM ---
Providers Date of Admission: 08/01/21 Date of Discharge: 08/02/21 Primary Care Physician: Dr. Carrington Bravo MD Consultations 08/01/21 18:08 Consult: Gastroenterology Routine Consulting Provider: Kermit Mcfarland Reason for Consult: Suspected Gallstone Pancreatitis EMERGENT Consult: No Notified: Yes Date Notified: 08/01/21 Time Notified: 15:43 Method of Notification: Verbal Reason For Visit: GALLSTONE PANCREATITIS Diagnosis Discharge Diagnosis (1) Acute pancreatitis: Status: Acute Code(s): K85.90 - Acute pancreatitis without necrosis or infection, unspecified (2) Cholelithiasis: Status: Acute Code(s): K80.20 - Calculus of gallbladder without cholecystitis without obstruction (3) Hepatic steatosis: Status: Chronic Code(s): K76.0 - Fatty (change of) liver, not elsewhere classified Medications at Discharge Home Medications albuterol sulfate [Proventil HFA] 1 - 2 g IH PRN PRN 01/01/16 escitalopram oxalate 20 mg PO DAILY 08/01/21 omeprazole 40 mg PO DAILY 08/01/21 ursodiol 250 mg PO TIDCM 30 Days #90 tab 08/02/21 Hospital Course Operations None Procedures None Summary of Care Provided Minutes Spent on Discharge: 50 Hospital Course: 26 old female, morbidly obese who comes in to the hospital with a 3-day history of worsening epigastric abdominal pain. Pain is worse when she eats. Her vitals in the ED were stable. Her admitting blood work was remarkable for total bilirubin of 4.8, diarrhea of 3.19, AST was 156, ALT of 486, ALP of 206. Her lipase was 4070. An ultrasound of her abdomen showed fatty infiltration of the liver, multiple gallstones, and a mild degree of right hydronephrosis. Patient was admitted to the MedSurg floor and managed conservatively, kept n.p.o. GI was consulted. Patient had improved the next day. Her blood sugars were 68. This was treated. Patient was allowed to have clear liquid diet and her diet advanced as she could tolerate. She was recommended to have outpatient cholecystectomy. She was also started on you ursodiol. To follow-up with her primary care doctor in 1 to 2 weeks. She should be on medication such as Metformin or pioglitazone for hepatic steatosis in the outpatient. Physical Exam Narrative Physical exam: General: Alert, Oriented x3, Cooperative, No apparent distress, Well developed, super morbidly obese HEENT: Atraumatic Oral: Moist Mucosa Neck: Supple Lungs: Diminished to auscultation Cardiovascular: HS I+II, regular, no murmurs Abdomen: Bowel Sounds Present, Soft, Non Tender Extremities: No edema Weight / BMI Weight Weight: 184.612 kg Body Mass Index (BMI) 63.7 ABG / Lab / Microbiology Data Result Diagrams: 08/02/21 05:30 08/02/21 05:30 Laboratory: Laboratory Results - last 24 hr 08/01/21 12:25: WBC 6.3, RBC 4.72, Hgb 13.2, Hct 40.4, MCV 85.6, MCH 28.0, MCHC 32.7, RDW Std Deviation 38.1, RDW Coeff of Arvin 12.3, Plt Count 199, MPV 10.9, Immature Gran % (Auto) 0.300, Neut % (Auto) 70.9 H, Lymph % (Auto) 18.9 L, Love % (Auto) 7.6, Eos % (Auto) 1.7, Baso % (Auto) 0.6, Absolute Neuts (auto) 4.5, Absolute Lymphs (auto) 1.19, Nucleated RBC % 0 08/01/21 12:25: Sodium 140, Potassium 3.7, Chloride 107, Carbon Dioxide 26.0, Anion Gap 7, BUN 9, Creatinine 0.77, Estim Creat Clear Calc 108.61, Est GFR (MDRD) Af Amer 118, Est GFR (MDRD) Non-Af 97, BUN/Creatinine Ratio 11.7, Glucose 95, Calcium 8.2 L, Total Bilirubin 4.80 H, Direct Bilirubin 3.19 H, AST 156 H, ALT 486 H, Alkaline Phosphatase 206 H, Total Protein 7.2, Albumin 3.1 L, Globulin 4.1, Lipase 4070 H 08/02/21 05:30: Sodium 139, Potassium 3.9, Chloride 109 H, Carbon Dioxide 23.0, Anion Gap 7, BUN 12, Creatinine 0.71, Estim Creat Clear Calc 117.79, Est GFR (MDRD) Af Amer 129, Est GFR (MDRD) Non-Af 106, BUN/Creatinine Ratio 16.9, Glucose 68 L, Calcium 7.9 L, Magnesium 2.1, Total Bilirubin 1.20 H, AST 66 H, ALT 335 H, Alkaline Phosphatase 184 H, Total Protein 6.6, Albumin 2.8 L, Globulin 3.8, Albumin/Globulin Ratio 0.7 L, Triglycerides 105, Cholesterol 149, LDL Cholesterol 89, VLDL Cholesterol 21, HDL Cholesterol 39 L, TSH 1.48 08/02/21 05:30: WBC 7.9, RBC 4.35, Hgb 12.2, Hct 38.6, MCV 88.7, MCH 28.0, MCHC 31.6 L, RDW Std Deviation 39.5, RDW Coeff of Arvin 12.2, Plt Count 189, MPV 11.0, Immature Gran % (Auto) 0.300, Neut % (Auto) 68.8, Lymph % (Auto) 23.2, Love % (Auto) 6.0, Eos % (Auto) 1.3, Baso % (Auto) 0.4, Absolute Neuts (auto) 5.5, Absolute Lymphs (auto) 1.84, Nucleated RBC % 0 08/02/21 05:30: Phosphorus 3.0 Radiography Diagnostic Testing: Radiology Impression Chest X-Ray 08/01/21 12:22 IMPRESSION: Normal x-ray examination of the chest. Electronically Signed: Juan Ellington MD at 12:46 EDT , Service support , Abdomen Ultrasound 08/01/21 13:23 IMPRESSION: Fatty infiltration of the liver. Multiple gallstones. Mild degree of bright hydronephrosis. Electronically Signed: Juan Ellington MD at 15:09 EDT , Service support , D/C Instructions Discharge Diet: Carb Control Diet Weight Bearing Status: Weight bearing as tolerated Meaningful Use Info Meaningful Use Diagnoses (Choose all that apply): None applicable Discharge Plan Admission Admit Date/Time: 08/01/21 15:41 Primary Reason for Your Visit: Acute gallstone pancreatitis Attending Provider: Dara Mcclain Primary Care Provider: Carrington Bravo Consulting Providers: Kermit Mcfarland Instructions Forms: Work / School Excuse Patient Instructions: What Are Gallstones, Understanding Pancreatitis Additional Instructions / Restrictions: Continue on a liquid diet and advance your diet as tolerated. Continue on a low-fat diet Discharge Orders/Prescriptions Prescriptions: New ursodiol 250 mg Tablet 250 mg PO TIDCM 30 Days Qty: 90 RF: 0 Continued albuterol sulfate [Proventil HFA] 6.7 GM HFA aerosol inhaler 1 - 2 g IH PRN PRN (Reason: Sob &/Or Wheezing) RF: 0 omeprazole 40 mg capsule,delayed release(DR/EC) 40 mg PO DAILY RF: 0 escitalopram oxalate 20 mg tablet 20 mg PO DAILY RF: 0 Referrals / Follow Up: Kermit Mcfarland DO [STAFF PHYSICIAN] - Within 2 Weeks Carrington Bravo MD [Primary Care Provider] - Within 2 Weeks Disposition Disposition (needs filled in before D/C Order can be placed): Home, Self Care Charges/Coding Visit Charges Inpatient E&M: 01218 Disch Hosp
== END 2021-08-02 12:45 | disposition home or self-care (01) | DRG 439 ==
LOC: ED 15:24 → MS2 08-02 07:02
PROVIDERS: Admitting Provider Internal Medicine; Emergency Provider Emergency Medicine; PCP Internal Medicine; Visit Provider Internal Medicine
DX: K85.90 Acute pancreatitis without necrosis or infection, unspecified (principal); N13.30 Unspecified hydronephrosis; Z68.44 Body mass index [BMI] 60.0-69.9, adult; K80.20 Calculus of gallbladder without cholecystitis without obstruction; K76.0 Fatty (change of) liver, not elsewhere classified; K21.9 Gastro-esophageal reflux disease without esophagitis; E66.01 Morbid (severe) obesity due to excess calories
CPT/HCPCS: 71045; 76705; 80048; 80053; 80061; 80076; 83690; 83735; 84100; 84443; 85025; 99284; J7030; A4216; J2405

== ENCOUNTER 2021-08-26 05:59 | Day surgery (SDC) | payer OTHER, SELFPAY ==
--- NOTE | 2021-08-26 06:11 | HP.PCM_ITS ---
History and Physical Date of Admission: 08/26/21 Intake Visit Reasons: GALLBLADDER Chief Complaint: discuss cary Continuity Director Required: No Is patient in pain?: No Allergies No Known Allergies Allergy (Verified 08/20/21 08:43) Medications albuterol sulfate [Proventil HFA] 1 - 2 g IH PRN PRN 01/01/16 [History Confirmed 08/20/21] escitalopram oxalate 20 mg PO DAILY 08/01/21 [History Confirmed 08/20/21] omeprazole 40 mg PO DAILY 08/01/21 [History Confirmed 08/20/21] ursodiol 250 mg PO TIDCM 30 Days #90 tab 08/02/21 [Rx Confirmed 08/20/21] Is last menstrual period known: No Post menopausal: No Patient : No PFSH Medical History (Updated 08/20/21 @ 10:[address] Geoff Bowens MD) Asthma CPAP (continuous positive airway pressure) dependence Depression Gallstones H. pylori infection Seasonal allergies Sleep apnea Family History Other Hypertension Social History Smoking Status: Never smoker alcohol intake: current alcohol intake frequency: holidays/special occasions only substance use type: does not use HPI HPI HPI: AINSLEY MORRIS, is a 26 F who presents to the office today for surgical consultation regarding an episode of gallstone pancreatitis. The patient is referred by Dr. Kermit Mcfarland and a written copy of my surgical consult recommendations will return to him. The patient was hospitalized at the [facility] on August 01, 2021 with a complaint of 3-day history of worsening abdominal pain. She had an elevated total bilirubin at that time of 4.8 with a direct bilirubin of 3.19. AST was 156 and ALT 486 with an alkaline phosphatase of 206. Lipase was elevated at 4070. Ultrasound was performed showing a fatty liver multiple gallstones no ductal dilatation of the biliary system. GI consultation was obtained and she was aggressively hydrated. She she improved rapidly. She was initiated on ursodiol twice daily. Her history of gastroesophageal reflux disease treated medically noted. The patient is noted to steatosis and outpatient follow-up with Dr. Mcfarland is scheduled. On admission the patient's body weight was 181 kg with a BMI of 62.6. Fortunately today she is not complaining of any abdominal pain. No fever no nausea. She denies any previous history of abdominal surgery. She has not had a history of deep venous thrombosis. ROS General General: No weight change, appetite, fatigue, colon cancer, breast cancer or weakness HEENT HEENT: No difficulty swallowing, eye injury, eye surgery, swollen glands or hoarseness Endo Endocrine: No thyroid disease, diabetes mellitus, thyroid cancer, Hair loss, heat intolerance or cold intolerance Cardio Cardiovascular: No murmur, pacemaker, heart disease, atrial fibrillation, high blood pressure, heart attack, heart stent, palpitations, shortness of breat with exertion or chest pain Psych Psychiatric: Yes depression; No anxiety or hearing voices Resp Respiratory: No shortness of breath, Yes sleep apnea, Yes cough, No COPD, Yes asthma, No emphysema and No wheezing Gastro Gastrointestinal: Yes abdominal pain, Yes nausea or vomiting, No diarrhea, No constipation, No blood in stool, No acid reflux, No hemorrhoids, No ulcers, No gallbladder problem and No black,tarry stools Antony Hematologic: No blood thinners, No blood disorders, No bleeding, No anemia and No blood clots Neuro Neurologic: No weakness Exam Const General: cooperative, comfortable and no acute distress Nutritional Appearance: obese morbidly obese Orientation: alert, awake and oriented x3 HENMT Head: normal to inspection Eyes General: appearance normal, both eyes and all related structures Neck Neck: normal visual inspection Resp Effort & Inspection: normal respiratory effort Auscultation: clear to auscultation bilaterally Cardio Rate: regular rate Rhythm: regular rhythm GI Other: Soft, nontender, large abdomen and abdominal pannus, normal bowel sounds, I am not able to clinically detect any internal organs Musc Cervical Spine: normal cervical lordosis Skin General: no rashes or lesions noted Neuro General: patient alert Cognition: normal cognition Extrem Other: Lower extremities are large, no palpable calf tenderness, no pitting edema Psych Affect: normal affect COVID (Procedure Consent) Procedure Criteria Procedure Criteria: Yes Elective The surgeon/proceduralist and patient have discussed in detail the risk of exposure to and/or potential harm posed by the COVID-19 virus with having a surgery/procedure at this time versus the risk of delaying the surgery/procedure. It is not possible to know either the risk of delaying the surgery or procedure or chance of getting an infection with perfect accuracy, but a joint decision was made between the patient and the surgeon/proceduralist to proceed at this time with the scheduled surgery/procedure as indicated on the consent form. Assessment and Plan Assessment and Plan (1) Gallstones: Status: Acute (2) Acute pancreatitis: Status: Acute Qualifiers: Pancreatitis type: biliary Acute pancreatitis complication: no infection or necrosis Qualified Code(s): K85.10 - Biliary acute pancreatitis without necrosis or infection (3) Cholelithiasis: Status: Acute Qualifiers: Cholelithiasis location: gallbladder Biliary obstruction: without biliary obstruction Cholecystitis presence: with cholecystitis Cholecystitis acuity: chronic Qualified Code(s): K80.10 - Calculus of gallbladder with chronic cholecystitis without obstruction (4) Hepatic steatosis: Status: Chronic Plan Details Additional Comments: I recommend to the patient a laparoscopic cholecystectomy with selective cholangiography. I have described the technique, benefit, risk, alternatives. We had an extensive discussion regarding the patient's body habitus. She is clearly aware that this places her at significantly increased operative risk. I offered her tertiary referral to a bariatric center. She prefers to stay locally. She is aware that our standard technique utilizes 4 ports. She is aware that additional ports might be required. She is aware that if visualization cannot be completely achieved that there is a potential that a partial cholecystectomy might be performed. She is aware that I am not in favor of converting to an open technique as I believe that that would be technically very difficult as well. She has had an opportunity to ask and have questions answered. She would like to schedule and proceed as noted. I am anticipating placing the ports higher in the abdomen. I am anticipating potentially needing extra ports for retraction purposes. I appreciate the opportunity of assisting with the surgical care Copy: Dr. Kermit Mcfarland and Dr. Carrington Bowens M.D., F.A.C.S. Coding Level of Care Code 21938 Diagnoses Gallstones K80.20 Acute pancreatitis K85.10 Pancreatitis type: biliary Acute pancreatitis complication: no infection or necrosis Cholelithiasis K80.10 Cholelithiasis location: gallbladder Biliary obstruction: without biliary obstruction Cholecystitis presence: with cholecystitis Cholecystitis acuity: chronic Hepatic steatosis K76.0 I have re-examined the patient. There are no clinical changes since date of exam. Geoff Bowens M.D., F.A.C.S.
--- NOTE | 2021-08-26 06:12 | EX.PCM.DISCH ---
Discharge Instructions Procedure General Surgery Diet Discharge Diet: Light diet - advance as tolerated (if you have questions about your diet instructions, please talk to you doctor.) Activity Discharge Activity: May Not Drive (for 3-5 days or while taking narcotic pain medicine.) May shower in (days): 1 Lifting Restrictions: 10 pounds Dressing / Incision Call your doctor if your incision/area has: Continuous Slow Oozing, Sudden Increased Bleeding, Increased Pain/ Swelling, Increased Redness and Foul Smelling Discharge Call your doctor if you observe: Fever of 101 or Higher Suture Line Care: Avoid Pulling/Pushing and Avoid Pinching/Bending Additional Dressing/Incision Instructions:: Change or remove dressing in 4 days. Leave steri-strips in place for 1 week. Follow Up Care Please Follow Up With: Geoff Bowens MD When: Call [phone] to make an appointment to be seen in about 10 days. Test Results: Test results from this visit will be discussed in further detail at your follow-up appointment, if applicable. Discharge Plan Admission Attending Provider: Geoff Bowens Primary Care Provider: Carrington Bravo Discharge Orders/Prescriptions Prescriptions: No Action albuterol sulfate [Proventil HFA] 6.7 GM HFA aerosol inhaler 1 - 2 g IH PRN PRN (Reason: Sob &/Or Wheezing) RF: 0 omeprazole 40 mg capsule,delayed release(DR/EC) 40 mg PO DAILY RF: 0 escitalopram oxalate 20 mg tablet 20 mg PO DAILY RF: 0 ursodiol 250 mg Tablet 250 mg PO TIDCM 30 Days Qty: 90 RF: 0
--- NOTE | 2021-08-26 06:13 | EKG12_ITS ---
Test Reason : PRE-OP Blood Pressure : / mmHG Vent. Rate : 078 BPM Atrial Rate : 078 BPM P-R Int : 162 ms QRS Dur : 082 ms QT Int : 380 ms P-R-T Axes : 043 059 026 degrees QTc Int : 433 ms Normal sinus rhythm Normal ECG When compared with ECG of 01-JAN-2016 11:27, No significant change was found Confirmed by MAE PEARCE, MICAH ([id number]), editor continuity and script REID BIANCHI ([id number]) on 09/03/2021 10:07:57 AM Referred By: Carrington Bravo Confirmed By:MICAH WALL MD
[2021-08-26 06:24] LABS: Internal QC Validated? YES +Cl - CLEAR BKGD; Pregnancy, Urine Negative Negative
[2021-08-26 06:32] VITALS: BP 139/66; PULSE 91; RESP 16; TEMP 36.6; O2SAT 99; BMI 62.2
[2021-08-26] MEDS: Lactated Ringers 1,000 ML 100 ML IV ×2 (06:37→09:50)
--- NOTE | 2021-08-26 07:30 | RAD_ITS ---
STUDY: INTRAOPERATIVE CHOLANGIOGRAM. REASON FOR EXAM: Female, 26 years old. LAP VANE WITH IOC FLUOROSCOPY TIME (if supplied): ( 27.5 seconds ) minutes/seconds. A cine loop of 87 images were submitted. TECHNIQUE: An intraoperative cholangiogram was performed by the surgeon. Imaging was submitted. COMPARISON: None. FINDINGS: The intrahepatic and extrahepatic biliary ducts are unremarkable. There is free flow of contrast into the duodenum. RAD/Cholangiogram/ O R,Initial IMPRESSION: Unremarkable intraoperative cholangiogram. Electronically Signed: Juan Ellington MD at 15:31 EDT , Service support ,
--- NOTE | 2021-08-26 07:30 | GALL_PTH ---
PATIENT: AINSLEY MORRIS [place] [facility] [place][id number] AGE/SX: 26/F ROOM: RE08/26/[address]: Dr. Geoff Bowens MD : 1995 BED: DIS: 08/26/2021 SPEC #: [id number] RECD: 08/26/21 09:56 STATUS: BRITNEY REChristine #: [id number] NAM: 08/26/21 07:[address]: Geoff Bowens DEPT: SURGICAL PATHOLOGY RECD BY: Azul Finn ENTERED: 08/26/21 10:44 SP TYPE: KHUSHI CHEEMA DR: MD Carrington Hinds MD Tissues: Gallbladder, NOS Procedures: Surgery Specimen Level III HEADER OPERATION: Laparoscopic cholecystectomy with IOC PRE-OP DIAGNOSIS: Gallstones, acute pancreatitis, cholelithiasis, hepatic steatosis TISSUE SUBMITTED: Gallbladder MICROSCOPIC DIAGNOSIS Gallbladder, cholecystectomy: Chronic cholecystitis, cholelithiasis and cholesterolosis. SJ:miranda 08/27/2021 MICROSCOPIC DESCRIPTION Slides are reviewed. GROSS DESCRIPTION Received is one container labeled with the patient's name and designated gallbladder. The specimen consists of a gallbladder measuring 10.5 x 3.5 x 3.5 cm. The external surface is smooth and glistening. Focally, it is granular, hemorrhagic and contains cautery artifact. The lumen of the gallbladder contains a large amount of yellow mucoid bile and multiple chalky, yellow calculi and fragments of calculi ranging in size from 0.2 to 1.7 cm in greatest dimension. The mucosa is bile-stained and without any mass lesions. The gallbladder wall averages 0.1 cm in thickness and is free of mass lesions. Stripe Marker sections of the gallbladder and the cystic duct at margin of resection are submitted in one cassette. / AM:miranda 08/26/21 TC:3 CPT: 75684
[2021-08-26] MEDS: Bupivacaine Mpf 0.5% 30 ML VIAL (08:50)
--- NOTE | 2021-08-26 08:56 | OP.PCM_ITS ---
Problems Associated Problem List Diagnoses (1) Gall stone pancreatitis: (2) Cholelithiasis with chronic cholecystitis: Report of Operation Date of Procedure: 08/26/21 Pre-Operative Diagnosis: Gallstone pancreatitis, chronic cholecystitis cholelithiasis Post-Operative Diagnosis: Same Surgery/Procedure Performed:: Laparoscopic cholecystectomy with cholangiography Description of Surgical Findings:: Timeout and informed consent was obtained. Patient was taken to the operating placed upon the table underwent general endotracheal intubation anesthesia. Ancef 3 g were given intravenously preoperatively. The abdomen sterilely prepped and draped. Because of the patient's body habitus she was placed on an extra-large table there were 3 securing belt utilized as well as careful tape securement. The abdomen sterilely prepped and draped. 0.5% Marcaine was used as local anesthetic. Throughout the procedure total 30 cc was used. A supraumbilical vertical incision was created. Holding sutures of 0 Vicryl placed. Varies needle inserted. The abdomen was insufflated with CO2 to a pressure of 15 mmHg pressure. A 10 mm trocar was inserted. 10 mm laparoscope inserted no evidence of any trocar injuries. Under direct visualization 5 mm ports were placed in the epigastric area right mid costal area and right lateral upper abdomen. The gallbladder was distracted. Fibrofatty tissue noted to the infundibular area. Blunt dissection was performed till clearly the cystic artery and cystic duct identified. The right hepatic artery curled up over the infundibular area and t he cystic artery was dissected free. 2 Hem-o-juani clips were placed proximally and one distally on the cystic artery prior to transecting it. Hemoclip was placed on the cystic duct. Incision made in the cystic duct. Through a 14- gauge Angiocath cholangiogram catheter was inserted. Fluoroscopically controlled cholangiograms were obtained demonstrating normal ductal anatomy and flow into the small bowel. Cholangiogram catheter was removed and 2 additional Hem-o-juani clips were placed on the cystic duct stump prior to transecting it. The gallbladder was tediously dissected free from the liver bed. Complete hemostasis was intact and there was absolutely no bile or stone spillage. The gallbladder was released and immediately traced in a retrieval bag. The right upper quadrant was irrigated and aspirated free of excess fluid. The gallbladder was exited the umbilicus slight fascial enlargement was required. I initially then tried to place a grainy needle at the umbilical area but the patient's body habitus inhibited visualization in correct placement. So then we allowed the abdomen to deflate through an antiviral valve. Trochars removed. The skin is incision was slightly enlarged at the umbilicus in order to better visualize the fascia which then was closed with a [id number] suture of 0 Vicryl. Skin edges were approximated opted for Monocryl subdermal stitches. Steri-Strips Telfa OpSite dressings applied. Sponge and instrument and needle counts reported the surgeon be correct Specimen gallbladder. Drains none. Blood loss minimal. The patient was taken to the recovery area in satisfactory condition without apparent complication Geoff Bowens M.D., F.A.C.S. Surgeon: Geoff Bowens Type of Anesthesia: General Anesthesiologist: Bon Murillo
[2021-08-26 09:22] VITALS: BP 133/66; BP 133/91; PULSE 57; RESP 24; TEMP 36.3; O2SAT 100
[2021-08-26 09:30] VITALS: BP 120/90; BP 133/66; PULSE 57; RESP 18; O2SAT 100
[2021-08-26 09:45] VITALS: BP 123/73; BP 133/66; PULSE 59; RESP 18; O2SAT 96
[2021-08-26 10:00] VITALS: BP 118/81; BP 133/66; PULSE 58; RESP 18; TEMP 36.3; O2SAT 99
[2021-08-26 11:43] VITALS: BP 132/79; BP 133/66; PULSE 62; RESP 18; TEMP 36.1; O2SAT 95
== END 2021-08-26 11:45 | disposition home or self-care (01) ==
LOC: SDC 06:00 → AC 06:01
PROVIDERS: Anesthesiology; PCP Internal Medicine; Referring Provider Internal Medicine; Visit Provider Surgery
PROC: (CPT 47610; principal; 2021-08-26 07:10)
DX: K85.10 Biliary acute pancreatitis without necrosis or infection (principal); K80.10 Calculus of gallbladder with chronic cholecystitis without obstruction; K76.0 Fatty (change of) liver, not elsewhere classified; K21.9 Gastro-esophageal reflux disease without esophagitis; E66.01 Morbid (severe) obesity due to excess calories; Z68.44 Body mass index [BMI] 60.0-69.9, adult; Z79.899 Other long term (current) drug therapy
CPT/HCPCS: 00790; 47563; 74300; 76000; 81025; 88304; 93005; J7120